=== PATIENT | male | born 1995 | race Caucasian/White ===

== ENCOUNTER 2018-03-28 12:16 | Emergency (ER) | END 2018-03-28 13:40 | disposition home or self-care (01) ==

== ENCOUNTER 2018-03-30 10:48 | Emergency (ER) | END 2018-03-30 12:36 | disposition home or self-care (01) ==

== ENCOUNTER 2018-05-01 20:36 | Emergency (ER) | END 2018-05-02 06:11 | disposition home or self-care (01) ==